=== PATIENT | female | born 1990 | race Caucasian/White ===

== ENCOUNTER 2023-11-22 12:53 | Emergency (ER) | payer MEDICAID ==
[~2023-11-22] VITALS: Ht 154.9 cm; Wt 66.7 kg
[2023-11-22] MEDS ORDERED: BUPR1FIL7 SL (14:33)
[2023-11-22 15:06] VITALS: BP 122/70; PULSE 96; RESP 14; TEMP 98.5; O2SAT 98
== END 2023-11-22 15:08 | disposition home or self-care (01) ==
LOC: ER 12:53
DX: F11.23 Opioid dependence with withdrawal (principal)
CPT/HCPCS: 99283

== ENCOUNTER 2023-12-18 09:34 | Emergency (ER) | payer MEDICAID ==
[~2023-12-18] VITALS: Ht 167.6 cm; Wt 69.3 kg
[~2023-12-18 09:34] MED LIST: BUPR1FIL7 SL
[2023-12-18 09:45] VITALS: BP 135/94; PULSE 107; RESP 18; TEMP 97; O2SAT 98
== END 2023-12-18 11:43 | disposition left against medical advice (07) ==
LOC: ER 09:35
DX: Z00.00 Encounter for general adult medical examination without abnormal findings (principal); Z53.21 Procedure and treatment not carried out due to patient leaving prior to being seen by health care provider